=== PATIENT | male | born 1935 | race Caucasian/White ===

== ENCOUNTER → 2016-07-28 | Outpatient (REF) | payer MEDICARE, BC, MEDICAID ==
[~2016-07-28] MED LIST: ACIDCAP15 PO; ADV250INH INH; AMBI10TA PO; ASPI325T OR; ASPI32ECTA PO; ASPI81TA3; ATIV1TAB10 PO; BISA10SU4 PR; CLOP75TA2 PO; DRIS50002 PO; DULC5TAB PO; FELO10TA; FELO10TA OR; FELO10TA PO; FELO5TAB3 PO; FURO40TA2 OR; HYDR50TA7; HYDR50TA7 OR; IMDU30TA PO; ISOS60TA2; KEFL500C OR; KEFL500C7 PO; LIPI20TA PO; LOVA40TA; LOVA40TA PO; MAG-OXIDE PO; MAGN400C2 PO; MAGN400T5 PO; MARI2.5C PO; METO-209 PO; MIRT15TA3 PO; NITR0.4S SL; NITR4TASL SL; NORV5TAB PO; PLAV75TA2 OR; SIMV80TA OR; SYMB16INH INH; TOPR100T; TOPR100T OR; TOPR100T PO; TOPR50TA; TORS20TA2; TYLE325T5 PO; VENO20IN IV
--- NOTE | 2016-07-28 12:50 | REP ---
CHEST: AP view of the chest is performed and compared to a prior study 05/25/2014. There are chronic fibrotic areas of scarring bilaterally. These are stable. No definite superimposed acute infiltrate is seen. The heart is normal in size. There is some calcification of the thoracic aorta. The mediastinal silhouette is unchanged. IMPRESSION: Chronic changes appear stable without evidence of acute infiltrate. Signed by Kalyan Concepcion MD 07/28/2016 02:27 P
== END ==
PROVIDERS: ATTEND Internal Medicine
DX: I50.9 Heart failure, unspecified (principal); J44.9 Chronic obstructive pulmonary disease, unspecified; R06.02 Shortness of breath

== ENCOUNTER 2016-10-19 16:47 | Inpatient (IN) | payer MEDICARE, BC, MEDICAID ==
[~2016-10-19] VITALS: Ht 165.1 cm; Wt 60.0 kg
[~2016-10-19 16:47] MED LIST changes: +ASPI325T24 PO; -ASPI32ECTA PO; +FELO5TAB PO; -FELO5TAB3 PO; +KEFL500C17 PO; -KEFL500C7 PO; -METO-209 PO; +METO1TAB33 PO
[2016-10-19] MEDS ORDERED: RENV2TAB PO ×2 (17:14→20:12)
[2016-10-19] MEDS ORDERED: AZIT500T2 PO (17:14)
[2016-10-19] MEDS ORDERED: NEPHTAB PO (17:14)
--- NOTE | 2016-10-19 17:42 | REP ---
Clinical: Cough and dyspnea. Technique: Portable upright view of the chest. Comparison: 07/28/2016. Findings: Mediastinum and cardiac silhouette are normal. Lung lutz demonstrate chronic stable changes without acute consolidation, obvious effusion or pneumothorax. Skeletal structures intact. Impression: Chronic stable changes. No acute cardiopulmonary process. Signed by Collin Norwood MD 10/19/2016 05:33 P
[2016-10-19 17:48] LABS: BASO % 0.3 % (0.0-1.0); EOS # 0.1 K/mm3 (0.0-0.50); EOS % 0.4 % (0.0-3.0); LARGE UNSTAINED CELL # 0.2 K/mm3 (0.0-0.4); LARGE UNSTAINED CELL % 1.4 % (0.0-4.0); LYMPH # 1.7 K/mm3 (1.5-4.5); LYMPH % 10.6 % (24.0-44.0); MEAN CORPUSCULAR HEMOGLOBIN 29.6 pg (27.0-33.0); MEAN CORPUSCULAR HGB CONC 32.1 g/dl (32.0-36.5); MEAN CORPUSCULAR VOLUME 92.3 fl (80.0-96.0); MONO # 0.7 K/mm3 (0.0-0.8); MONO % 4.9 % (0.0-5.0); NEUTROPHILS # 11.4 K/mm3 (1.8-7.7); NEUTROPHILS % 82.4 % (36.0-66.0); PLATELET COUNT, AUTOMATED 239 k/mm3 (150-450); RED CELL DISTRIBUTION WIDTH 13.3 % (11.5-14.5); WHITE BLOOD COUNT 13.8 K/mm3 (4.0-10.0)
[2016-10-19 18:08] LABS: CALCIUM LEVEL 9.6 MG/DL (8.8-10.2); CREATININE FOR GFR 10.3 MG/DL (0.70-1.30)
[2016-10-19 18:09] LABS: POTASSIUM SERUM 5.3 MEQ/L (3.5-5.1)
[2016-10-19 18:10] LABS: GLOMERULAR FILTRATION RATE 5.2 (>35)
--- NOTE | 2016-10-19 19:22 | ECGEPIP ---
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 RBBB SEPTAL MYOCARDIAL INFARCTION, OF INDETERMINATE AGE MODERATE T-WAVE ABNORMALITY, CONSIDER ANTEROLATERAL ISCHEMIA SIMILAR TO 09/19/14 Electronically Signed On 10-19-2016 19:22:03 EDT by Ricky Garcia
[2016-10-19] MEDS ORDERED: METO1TAB7 PO (20:12)
[2016-10-19] MEDS ORDERED: ATOR40TA75 PO (20:12)
[2016-10-19] MEDS ORDERED: ISOS30TAB PO (20:19)
[2016-10-19] MEDS ORDERED: ENEMENE16 PR (20:19)
[2016-10-19] MEDS ORDERED: ACET65SU PR (20:19)
[2016-10-19] MEDS ORDERED: LIDO2.5C15 EXT (20:19)
[2016-10-19] MEDS ORDERED: ONDANSETRON 4MG/2ML VIAL (J2405) IV ONE (20:30)
--- NOTE | 2016-10-19 20:30 | HPEPDOC ---
General Date of Admission Chief Complaint The patient is a 81-year-old male admitted with a reason for visit of Chest Pain. Source: Patient Exam Limitations: No limitations (2) Severity: Moderate Associated Symptoms: Chest Pain, Cough History of Present Illness Mr. Watkins is a pleasant 81 y/o male resident of [facility] with past medical history of ESRD on Dialysis T,R,Sa. Diastolic CHF, HTN, Hypercholesterolemia, COPD, Hx of CAD with prior CT in 2007 s/p angioplasty and stent placement, Hx of renal artery stenosis s/p renal artery stenting, Hx of acute blood loss anemia, Hx of tricuspid and mitral regurgitation, Hx of Pulmonary HTN, who presents today with the CC of a productive cough of yellow sputum and chest "soreness" for the past 2 days. The pt. denies experiencing fever, muscle ache or chills, changes in bowel or urinary habit, no pain with urination or defecation. Nothing seems to make the CP better or worse. He started taking an antibiotic for his cough today but states he still is coughing a lot. Denies being SOB but admits to a little bit of a decreased appetite for the past few days along with fatigue and some dry heaves. Although he is AAOx3 he is not the best historian. Some of the past medical hx is obtained through medical records. Of note he was admitted to our facility in 2014 for syncope. He has no other active complaints. Home Medications Scheduled (Lidocaine/Prilocaine 2.5-2.5 %) 1 Cre Cre, 1 CRE EXT 3XW, (Reported) TUESDAY, TUESDAY, AND TUESDAY AT 0500 TO LEFT ARM BEFORE DIALYSIS Atorvastatin Calcium (Atorvastatin Calcium) 40 Mg Tab, 40 MG PO QHS, (Reported) Azithromycin (Azithromycin) 500 Mg Tab, 500 MG PO DAILY, (Reported) 8 DAYS FOR URI STARTED TODAY Isosorbide Dinitrate (Isosorbide Dinitrate) 30 Mg Tab, 30 MG PO DAILY, (Reported ) TAKES AT 1100 Metoprolol Succinate (Metoprolol Succinate ER) 50 Mg Tab, 50 MG PO DAILY, ( Reported) TAKES AT 1100 Sevelamer Carbonate (Renvela) 800 Mg Tab, 800 MG PO BID, (Reported) TAKES AT 1100 AND 1800 ALONG WITH THE ONE IN THE MORNING Sevelamer Carbonate (Renvela) 800 Mg Tab, 800 MG PO DAILY, (Reported) TUESDAY, TUESDAY, TUESDAY AND TUESDAY AT 0800 Sevelamer Carbonate (Renvela) 800 Mg Tab, 800 MG PO DAILY, (Reported) TUESDAY, TUESDAY, AND TUESDAY AT 0500 Vitamin B Cmplx/Vitc/Folic Ac (Nephro-Ирина Rx 1 mg) 1 Tab Tab, 1 TAB PO DAILY, ( Reported) TAKES AT 1100 Scheduled PRN Acetaminophen (Tylenol) 325 Mg Tab, 650 MG PO Q4HP PRN for PAIN / FEVER, ( Reported) Acetaminophen (Acetaminophen) 650 Mg Supp, 650 MG WA Q4H PRN for PAIN / FEVER, ( Reported) Bisacodyl (Bisacodyl) 10 Mg Sup, 10 MG WA DAILY PRN for CONSTIPATION, (Reported) Nitroglycerin (Nitrostat) 0.4 Mg Subl, 0.4 MG SL NITRO PRN for CHEST PAIN, ( Reported) Sodium Phosphate/Biphosphate (Enema 7-19 gm/118Ml) 1 Loly Loly, 1 LOLY WA DAILY PRN for CONSTIPATION, (Reported) Allergies Coded Allergies: Cephalexin (Unverified Allergy, Unknown, 10/19/16) Past Medical History Medical History ESRD on dialysis t,r,sa. HTN DLP Family History Significant Family History: No pertinent family hx Social History * Smoker: Denies Alcohol: rarely Drugs: denies Psychosocial History: No pertinent psych hx lives at [facility] Review of Symptoms Constitutional: Reports: Malaise, Fatigue, Denies: Chills, Fever, Night Sweats, Weakness ENT: Denies: Head Aches Skin: Denies: Rash, Lesions Pulmonary: Reports: Cough, Denies: Dyspnea Cardiovascular: Reports: Chest Pain, Denies: Palpitations, Orthopnea, Paroxysmal Noc. Dyspnea, Edema Gastrointestinal: Reports: Nausea, Denies: Vomiting, Abdominal Pain, Diarrhea, Constipation, Melena, Hematochezia Genitourinary: Denies: Dysuria Hematologic: Denies: Bruising Musculoskeletal: Denies: Neck Pain Neurological: Reports: Weakness Psych: Reports: Mood Normal Physical Examination General Exam: Positive: Alert, Cooperative, No Acute Distress Eye Exam: Positive: Conjunctiva & lids normal, EOMI, Negative: Sclera icteric ENT Exam: Positive: Atraumatic, Mucous membr. moist/pink Neck Exam: Positive: Supple Chest Exam: Positive: Clear to auscultation, Diminished, Negative: Rhonchi, Wheezing Heart Exam: Positive: Rate Normal, Normal S1, Normal S2, Negative: Gallops, Murmurs, Rubs Telemetry: Positive: No significant arrhythmia Abdomen Exam: Positive: Normal bowel sounds, Soft, Negative: Tenderness, Hepatospenomegaly Extremity Exam: Negative: Clubbing, Cyanosis, Edema Neuro Exam: Positive: Normal Gait Psych Exam: Positive: Oriented x 3 Vital Signs Vital Signs Date Time Temp Pulse Resp B/P (MAP) Pulse Ox O2 Delivery O2 Flow Rate FiO2 10/19/16 18:55 160/81 (107) 10/19/16 18:40 110 93 10/19/16 17:55 Room Air 10/19/16 17:02 96.3 20 Laboratory Data Labs 24H Laboratory Tests 2 10/19/16 17:35: White Blood Count 13.8H, Red Blood Count 5.03, Hemoglobin 14.9, Hematocrit 46.5 , Mean Corpuscular Volume 92.3, Mean Corpuscular Hemoglobin 29.6, Mean Corpuscular Hemoglobin Concent 32.1, Red Cell Distribution Width 13.3, Platelet Count 239, Neutrophils (%) (Auto) 82.4H, Lymphocytes (%) (Auto) 10.6L, Monocytes (%) (Auto) 4.9, Eosinophils (%) (Auto) 0.4, Basophils (%) (Auto) 0.3, Neutrophils # (Auto) 11.4H, Lymphocytes # (Auto) 1.7, Monocytes # (Auto) 0.7, Eosinophils # (Auto) 0.1, Basophils # (Auto) 0.0, Large Unclassified Cells % 1.4 , Large Unclassified Cells # 0.2, Anion Gap 15, Glomerular Filtration Rate 5.2L , Lactic Acid Level 3.7*H, Blood Urea Nitrogen 28H, Creatinine 10.30H, Sodium Level 135L, Potassium Level 5.3H, Chloride Level 97L, Carbon Dioxide Level 23, Calcium Level 9.6, Total Creatine Kinase 789H, Creatine Kinase MB 105.7H, Creatine Kinase MB Relative Index 13.39H, Troponin I 35.00*H CBC/BMP Laboratory Tests 10/19/16 17:35 Red Blood Count 5.03, Mean Corpuscular Volume 92.3, Mean Corpuscular Hemoglobin 29.6, Mean Corpuscular Hemoglobin Concent 32.1, Red Cell Distribution Width 13.3 , Neutrophils (%) (Auto) 82.4 H, Lymphocytes (%) (Auto) 10.6 L, Monocytes (%) ( Auto) 4.9, Eosinophils (%) (Auto) 0.4, Basophils (%) (Auto) 0.3, Neutrophils # ( Auto) 11.4 H, Lymphocytes # (Auto) 1.7, Monocytes # (Auto) 0.7, Eosinophils # ( Auto) 0.1, Basophils # (Auto) 0.0, Calcium Level 9.6, Total Creatine Kinase 789 H Microbiology Microbiology 10/19/16 Blood Culture, Received Pending Problems (1) Recent non-ST elevation myocardial infarction (NSTEMI) Status: Acute Response to Treatment: Stable Problem Text: EKG in ED shows changes from prior in 2014 Troponin elevated to 3.5, CK 105.7 Will trend troponin q6h lactic 3.7 will repeat ASA, beta belkis and statin therapy admit to PCU continue to monitor (2) HTN (hypertension) Status: Chronic Response to Treatment: Stable Problem Text: continue home medications (3) HLD (hyperlipidemia) Status: Chronic Response to Treatment: Stable Problem Text: continue home medications (4) ESRD (end stage renal disease) on dialysis Status: Chronic Response to Treatment: Stable Problem Text: Creatine 10.30 baseline around 8 Gentle fluid hydration continue w/ dialysis schedule t,r,sat (5) DVT prophylaxis Status: Acute Response to Treatment: Stable Problem Text: scd teds Plan / VTE VTE Prophylaxis Ordered?: Yes GME ATTESTATION GME ATTESTATION My preceptor for this patient encounter was physically present in the building during the encounter and was fully available. As needed, all aspects of the patient interview, examination, medical decision making process, and medical care plan development were reviewed and approved by the preceptor. Preceptor is aware and concurs with the plan as stated in the body of this note and will attest to such by his/her cosignature. ATTENDING NOTE Pt seen and examined by me. Findings and plan reviewed with resident. Resident note reviewed and agree with documented findings and plan. 1 AMI Pt's trops markedly elevated Pt had AMI in 2007, at that time pt had chest pain, which he does not have at this time. Serial trops to see if still trending up If trops stable that pt had AMI prior to presentation Serial cpk's-more closely adhere to amount of cardiac tissue damage and since rise and fall follows actual CT, can help distinguish if pt had CT in last 1-2 days. 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
[2016-10-19 21:26] LABS: MAGNESIUM LEVEL 2.6 MG/DL (1.8-2.4)
[2016-10-19] MEDS ORDERED: ASPIRIN 81 MG CHEW TABLET PO ONE (21:30)
[2016-10-19] MEDS ORDERED: ACETAMINOPHEN TAB 650MG DOSE (2X325MG) PO PRN (21:45)
[2016-10-19] MEDS ORDERED: BISACODYL 10 MG SUPP PR PRN (21:45)
[2016-10-19 22:00] VITALS: BP 152/75
[2016-10-19] MEDS: (RENVELA) SEVELAMER **CARBONate** 800 MG TAB PO SCH (22:26)
[2016-10-19] MEDS: METOPROLOL TARTRATE 100 MG TAB PO SCH (22:27)
[2016-10-20] VITALS: BP 122/66
[2016-10-20 04:00] VITALS: BP 133/63
[2016-10-20 05:49] LABS: BASO # 0.1 K/mm3 (0.0-0.2); BASO % 0.3 % (0.0-1.0); EOS # 0.1 K/mm3 (0.0-0.50); EOS % 0.3 % (0.0-3.0); LARGE UNSTAINED CELL # 0.3 K/mm3 (0.0-0.4); LARGE UNSTAINED CELL % 1.9 % (0.0-4.0); LYMPH # 1.6 K/mm3 (1.5-4.5); LYMPH % 8.6 % (24.0-44.0); MEAN CORPUSCULAR HEMOGLOBIN 30.4 pg (27.0-33.0); MEAN CORPUSCULAR HGB CONC 33.4 g/dl (32.0-36.5); MONO # 1.1 K/mm3 (0.0-0.8); MONO % 6.1 % (0.0-5.0); NEUTROPHILS # 15.2 K/mm3 (1.8-7.7); NEUTROPHILS % 82.8 % (36.0-66.0); PLATELET COUNT, AUTOMATED 242 k/mm3 (150-450); WHITE BLOOD COUNT 18.4 K/mm3 (4.0-10.0)
[2016-10-20] MEDS ORDERED: ASPIRIN 325 MG TAB PO ONE (06:00)
[2016-10-20 06:08] LABS: CALCIUM LEVEL 9.4 MG/DL (8.8-10.2); CREATININE FOR GFR 11.1 MG/DL (0.70-1.30); GLOMERULAR FILTRATION RATE 4.8 (>35)
--- NOTE | 2016-10-20 06:17 | ECGEPIP ---
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
--- NOTE | 2016-10-20 06:23 | ECGEPIP ---
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
[2016-10-20 06:40] LABS: POTASSIUM SERUM 6.1 MEQ/L (3.5-5.1)
[2016-10-20 08:00] VITALS: BP 126/57
[2016-10-20] MEDS ORDERED: (RENVELA) SEVELAMER **CARBONate** 800 MG TAB PO SCH (08:00)
[2016-10-20] MEDS: ALBUTEROL SULFATE 2.5 MG/0.5 ML INH NEB SOLN NEB SCH ×3 (08:00→15:10)
[2016-10-20] MEDS ORDERED: ATORVASTATIN 20 MG TAB PO SCH (09:00)
[2016-10-20] MEDS ORDERED: METOPROLOL SUCC (TopROL XL) 100MG *XL* TAB PO SCH (09:00)
[2016-10-20] MEDS: (RENVELA) SEVELAMER **CARBONate** 800 MG TAB PO SCH (10:24)
[2016-10-20 10:26] VITALS: BP 124/64
[2016-10-20] MEDS: METOPROLOL TARTRATE 100 MG TAB PO SCH (10:26)
[2016-10-20] MEDS ORDERED: LevoFLOXacin IV 250 MG in APPROPRIATE DILUENT 1 EA IV SCH (11:00)
[2016-10-20] MEDS ORDERED: NEPHRO-VIT TAB (NEPHROCAPS) PO SCH (11:00)
[2016-10-20] MEDS ORDERED: HEPARIN 1,000 UNITS/ML 10ML VIAL (FOR RADIOLOGY& DIALYSIS ONLY) IV ONE (11:00)
[2016-10-20] MEDS ORDERED: LIDOCAINE 1% SDV 5 ML VIAL SQ ONE (11:00)
[2016-10-20 12:00] VITALS: BP 126/59
[2016-10-20] MEDS ORDERED: CLOPIDOGREL 300 MG TAB (PLAVIX) PO STA (12:42)
[2016-10-20] MEDS ORDERED: CLOPIDOGREL 75 MG TAB PO STA (12:45)
--- NOTE | 2016-10-20 13:23 | CR ---
DATE OF CONSULTATION: 10/20/2016 CONSULTATION FOR: Farnaz Moreira MD REASON FOR CONSULTATION: Hyperkalemia and need for dialysis. HISTORY OF PRESENT ILLNESS Mr. Watkins is an 81-year-old gentleman who is currently a care home resident. He has known history of end-stage renal disease; however he missed his dialysis yesterday due to not feeling well. He was sent to the emergency room with chest pain and cough. His troponin was elevated significantly and a diagnosis of acute myocardial infarction (AL) was made. The patient is now admitted to the intensive care unit. His potassium level was 6.1 this morning. A nephrology consultation was requested for dialysis. PAST MEDICAL HISTORY (Significant for): 1. History of end-stage renal disease requiring maintenance hemodialysis. 2. Diastolic congestive heart failure. 3. Hypertension. 4. Hypercholesterolemia. 5. Chronic obstructive pulmonary disease (COPD). 6. History of coronary artery disease with prior AL in 2007, status post angioplasty with stent placement. 7. History of renal artery stenosis, status post renal artery stenting. 8. History of tricuspid and mitral regurgitation. PAST SURGICAL HISTORY (Significant for): 1. AV fistula creation. 2. Angioplasty with stents. MEDICATIONS (His outpatient medications include): - atorvastatin 40 mg daily - azithromycin 500 mg, just one dose given yesterday - isosorbide 30 mg daily - metoprolol 50 mg daily - Renvela 800 mg with meals - vitamin B complex 1 tablet daily ALLERGIES: There is allergy reported to CEPHALEXIN. PERSONAL AND SOCIAL HISTORY: The patient is a care home resident. He does not smoke or drink. FAMILY HISTORY: There is no family history for end-stage renal disease. REVIEW OF SYSTEMS: The patient reports not feeling well. He has a cough and generalized weakness for a few days. He denies any fever or chills. Ears, nose and throat are unremarkable. Cardiovascular system: As per history of present illness. The patient had chest pain and generalized weakness. Acute AL has been diagnosed due to elevated troponin and CPK. He is currently chest pain free. Respiratory system is significant for cough without any hemoptysis or pleuritic type of chest pain. Gastrointestinal (GI) system is significant for poor appetite. No vomiting or diarrhea. The patient denies any abdominal pain. Genitourinary () system is negative for dysuria or hematuria. Endocrine system is negative for diabetes or thyroid problems. Hematological system is significant for anemia of chronic kidney disease. Psychosocial system is negative for depression or anxiety. Neurological system is negative for seizures or stroke. Musculoskeletal system is significant for chronic degenerative arthritis and limited ambulation. PHYSICAL EXAMINATION: Elderly male who looks quite emaciated. He is not on any acute distress. Temperature 97.9 degrees Fahrenheit, heart rate 78 per minute and respiratory rate 28 per minute. Blood pressure 126/57 mmHg and oxygen saturation 96% on room air. Head is atraumatic. Ears, nose and throat are unremarkable. He is edentulous and without any thrush or ulcers. Neck is supple and without jugular venous distention (JVD) or thyroid enlargement. Heart sounds are regular and there is no pericardial friction rub. Systolic murmur grade 2/6 is audible. Lungs with scattered rhonchi and diminished breath sounds at bases. Abdomen soft and nontender. Bowel sounds are normal. There is no palpable organomegaly. Extremities: Have no cyanosis or clubbing. Skin has no rash or ulcers. Neurologically, he is awake, alert and oriented times three. LABORATORY DATA: WBC count is 18.4, hemoglobin 14.6 and hematocrit 43.6. Sodium 137 and potassium 6.1. BUN is 33 and creatinine 11.1. His initial lactic acid level was 3.7 and a repeat one is 4.7. Troponin was initially 35.0, 39.4 and most recent 155.7. His CPK has been 789, 747 and 709. PROBLEMS: 1. Hyperkalemia. This is most likely related to missed dialysis and end-stage renal disease. We will arrange for dialysis this afternoon. The patient will be dialyzed with 1.0 mEq potassium bath which will correct his hyperkalemia. At present, there are no EKG changes so I will hold off on any medical intervention. 2. Acute AL. The patient does have a DO NOT RESUSCITATE (DNR) status; however, he has had angioplasty previously. I have discussed with Dr. Moreira and suggested to consider for possible transfer to [place] for angioplasty. She will discuss with the patient and depending upon his wishes will proceed. 3. End-stage renal disease. The patient has been on maintenance hemodialysis three times a week. Normally, his dialysis is performed on Tuesday, and Tuesday. He missed his dialysis yesterday and will arrange dialysis for this afternoon today. 4. Cough. Most likely, the patient has acute bronchitis. His chest x-ray did not show any evidence of consolidation. We will start with nebulizers, albuterol, and give him a dose of Levaquin 250 mg intravenously. Will also get sputum cultures. Thank you for involving me in the care of Mr. Watkins. I will follow him along with you.
--- NOTE | 2016-10-20 14:48 | ECGEPIP ---
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
[2016-10-20] MEDS ORDERED: BAYE325T12 PO (15:28)
[2016-10-20] MEDS ORDERED: ATOR1TAB21 PO (15:28)
[2016-10-20] MEDS ORDERED: LOPR1TAB7 PO (15:28)
[2016-10-20] MEDS ORDERED: CLOP75TA2 PO (15:28)
[2016-10-20 16:00] VITALS: BP 109/56
[2016-10-21] MEDS ORDERED: (RENVELA) SEVELAMER **CARBONate** 800 MG TAB PO SCH (05:00)
--- NOTE | 2016-10-21 11:34 | DSES ---
DATE OF ADMISSION: 10/19/2016 DATE OF DISCHARGE: 10/20/2016 PRIMARY CARE PROVIDER: Shayne Manrique MD DISCHARGE DIAGNOSES: Non-ST elevation acute myocardial infarction. End stage renal disease on hemodialysis, Tuesday, and Tuesday. Hyperkalemia. Diastolic congestive heart failure (CHF). Hypertension. Hypercholesterolemia. Chronic obstructive pulmonary disease (COPD). Coronary artery disease with history of prior myocardial infarction in 2007 status post angioplasty and stent placement. History of renal artery stenosis status post renal artery stenting. History of tricuspid and mitral regurgitation. Hyperlipidemia. Anemia of chronic disease. History of basal cell carcinoma of the skin. DISCHARGE MEDICATIONS: - aspirin 325 mg by mouth daily - clopidogrel 75 mg by mouth daily - atorvastatin 80 mg daily - metoprolol 100 mg twice a day - Tylenol 650 mg by mouth every 4 hours as needed pain or fever - bisacodyl 10 mg per rectum as needed for constipation - isosorbide dinitrate 30 mg by mouth daily - nitroglycerin 0.4 mg sublingual as needed chest pain - Renvela 800 mg three tablets in the morning, one tablet in the evening - vitamin B complex - folic acid - Nephro-Ирина one tablet by mouth daily HOSPITAL COURSE: This is an 81-year-old male who presented to the hospital with three days history of chest discomfort, tightness, cough, without much sputum production, feeling of tiredness, weakness and malaise. The patient missed his dialysis session because he was feeling unwell. 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 However, he still continued to feel chest discomfort so he came to the emergency room. In the emergency department, the patient had a chest x-ray done which showed chronic changes without any acute cardiopulmonary process. There was no consolidation, effusion or pneumothorax. The patient's other laboratory work was significant for a white count of 13.8 which increased to 18.4 the next day. Also he was hyperkalemic with a potassium of 6.1. His lactate was elevated to 3.7 and his cardiac enzymes were elevated with a Troponin I of 35, CK-MB of 105 and a CK-MB index of 13.39. The patient had repeat cardiac enzymes done which continued to increase reaching a value of 60. The next day at 11 o'clock with a CK-MB of 67.1 and index of 10.07. Initially when the patient came, the patient was feeling sick and he did not want any further cardiological workup including angioplasty done so the patient was not sent to [place]. However, overnight, the patient felt a little better so when I discussed with him regarding cardiac catheterization, angioplasty and possible stent placement and transfer to [place], he was agreeable to the plan. Though the patient is a DO NOT RESUSCITATE, DO NOT INTUBATE he did want a cardiac catheterization done and treatment after that for his acute myocardial infarction. So the patient was presented to [facility] and was accepted by medicine worker Dr. Cortes. The patient was transferred to [facility] for invasive cardiological studies. The patient did have two hours of hemodialysis at our institution for his hyperkalemia. PHYSICAL EXAMINATION: VITAL SIGNS: Temperature 97.3, pulse 77, respiratory rate 22, blood pressure 109/56, pulse oximetry 97% with 2 liters nasal cannula. GENERAL: Patient awake, alert and oriented times three, lying down in bed in no acute distress. HEENT: Normocephalic, atraumatic. Moist mucous membranes. Anicteric eyes. CHEST: Clear to auscultation, overall decreased breath sounds. CARDIOVASCULAR: S1 and S2 regular. There is a systolic murmur present. No gallop or rub. ABDOMEN: Soft, nontender. Bowel sounds present. EXTREMITIES: No edema. LABORATORY DATA: WBC 18.4, hemoglobin 14.6, platelets 242, sodium 137, potassium 6.1, chloride 98, bicarb 29, BUN 33, creatinine 11.1, glucose 138, calcium 9.4, CK 667, CK-MB 67.2, CK-MB index 10, Troponin I 60. Triglycerides 135, total cholesterol 146, LDL 46, HDL 73. DISPOSITION: Patient was transferred to [facility] for cardiac catheterization.
== END 2016-10-20 16:43 | disposition short-term general hospital (02) | DRG 280 ==
LOC: M ED 16:47 → EDBD 16:47 → M ED INP 20:54 → M ICU 10-20 08:00
PROVIDERS: ATTEND Internal Medicine Nephrology
PROC: 5A1D60Z (ICD-10-PCS; principal; 2016-10-20)
DX: I21.4 Non-ST elevation (NSTEMI) myocardial infarction (principal); N18.6 End stage renal disease; I50.32 Chronic diastolic (congestive) heart failure; I13.2 Hypertensive heart and chronic kidney disease with heart failure and with stage 5 chronic kidney disease, or end stage renal disease; J44.0 Chronic obstructive pulmonary disease with (acute) lower respiratory infection; E78.5 Hyperlipidemia, unspecified; E87.5 Hyperkalemia; D63.1 Anemia in chronic kidney disease; Z95.5 Presence of coronary angioplasty implant and graft; Z66 Do not resuscitate; I08.1 Rheumatic disorders of both mitral and tricuspid valves; J20.9 Acute bronchitis, unspecified; I25.10 Atherosclerotic heart disease of native coronary artery without angina pectoris; I27.2 Other secondary pulmonary hypertension; Z79.899 Other long term (current) drug therapy; Z88.1 Allergy status to other antibiotic agents; Z99.2 Dependence on renal dialysis; Z85.828 Personal history of other malignant neoplasm of skin